=== PATIENT | male | born 1955 | race Caucasian/White ===

== ENCOUNTER → 2016-09-15 | Outpatient (CLI) | payer BC ==
[~2016-09-15] VITALS: Ht 177.8 cm; Wt 95.5 kg
[~2016-09-15] MED LIST: ARMO150T4 PO; MULT-506 PO; NITR1CAP16 PO; OXYC-57 PO; PRAM0.5T10 PO
[2016-09-15 16:10] VITALS: BP 139/81; PULSE 92; Ht 177.8 cm; Wt 95.5 kg
== END | disposition home or self-care (01) ==
LOC: C.NEUR 16:00
PROVIDERS: ATTEND Internal Medicine Pulmonary Disease
DX: G47.33 Obstructive sleep apnea (adult) (pediatric) (principal); J44.9 Chronic obstructive pulmonary disease, unspecified

== ENCOUNTER → 2016-12-19 | Outpatient (CLI) | payer BC ==
[~2016-12-19] MED LIST changes: +ASPI81TA28 PO; +TIOT1SPR INH
== END | disposition home or self-care (01) ==
LOC: C.LAB1850 07:03
PROVIDERS: ATTEND Urology
DX: R31.0 Gross hematuria (principal)

== ENCOUNTER 2017-01-15 10:10 | Day surgery (SDC) | payer BC ==
[2016-12-30 15:12] VITALS: BMI 29.0
--- NOTE | 2016-12-30 15:37 | PAT Medication Instructions ---
Service Date December 30, 2016. Current Home Medication List Armodafinil (Nuvigil), 1 TAB PO QAM Multivitamin (Multivitamin), 1 TAB PO QAM Pramipexole Dihydrochloride (Pramipexole Dihydrochlori), 1 MG PO HS Medication Instructions For Your Scheduled Surgery - Hold the following medications the morning of surgery: Multivitamin (Multivitamin), 1 TAB PO QAM Armodafinil (Nuvigil), 1 TAB PO QAM - Take the following medications as scheduled the night before surgery: Pramipexole Dihydrochloride (Pramipexole Dihydrochlori), 1 MG PO HS If you have any questions please call us at [phone] (Amber Damon PA-C) or [phone] or [phone]
--- NOTE | 2016-12-30 15:59 | DIAGNOSTIC IMAGING REPORT ---
CHEST 2 VIEWS ROUTINE CLINICAL HISTORY: Preoperative chest COMPARISON STUDY: 10/26/2015 FINDINGS: The cardiac and mediastinal contours are normal. There is no evidence of focal pulmonary consolidation. There is no evidence of failure. No pleural effusions are visualized.[ There is a stable thoracic scoliosis. There is mild biapical pleural thickening. IMPRESSION: No active disease in the chest. Electronically signed by: Dusty Wilson M.D. 12/30/2016 3:58 PM Dictated Date/Time: 12/30/2016 3:57 PM
[2016-12-30 16:08] LABS: BASO % 0.3 %; BASO ABS # 0.02 K/uL (0-0.2); COMPLETE YES; HEMATOCRIT 43.2 % (42-52); IG% 0.6 %; LYMPH ABS # 1.44 K/uL (1.2-3.4); MEAN CELL VOLUME 92.5 fL (80-100); MEAN CORPUSCULAR HEMOGLOBIN 31.5 pg (25-34); MEAN PLATELET VOLUME 9.9 fL (7.4-10.4); MONO % 5.9 %; NEUT % 69.2 %; PLATELET COUNT 209 K/uL (130-400); RED BLOOD COUNT 4.67 M/uL (4.7-6.1); WHITE BLOOD COUNT 6.26 K/uL (4.8-10.8)
[2016-12-30 16:13] LABS: URINE APPEARANCE CLEAR (CLEAR); URINE BILIRUBIN NEG (NEG); URINE COLOR YELLOW; URINE NITRITE NEG (NEG); URINE SPECIFIC GRAVITY 1.009 (1.000-1.030); UROBILINOGEN NEG (NEG)
[2016-12-30 16:16] LABS: BUN/CREATININE RATIO 10.8 (10-20); CALCIUM 9.2 mg/dl (8.5-10.1); CREATININE 1.1 mg/dl (0.60-1.40); POTASSIUM 3.5 mmol/L (3.5-5.1)
[2016-12-30 16:18] LABS: MANUAL MICROSCOPIC REQUIRED? NO; REVIEW REQ? NO
[~2017-01-15] VITALS: Ht 180.3 cm; Wt 96.8 kg
[~2017-01-15 10:10] MED LIST changes: -ASPI81TA28 PO; +CIPROFLOXACIN / D5W 400 MG IV SCH; +LACTATED RINGER'S 1000ML 1,000 ML IV SCH; -NITR1CAP16 PO; -OXYC-57 PO; -TIOT1SPR INH
[2017-01-15 10:28] VITALS: BP 139/69; PULSE 82; TEMP 36.6; O2SAT 98; Ht 180.3 cm; Wt 96.8 kg
[2017-01-15] MEDS ORDERED: FLUMAZENIL 0.1 MG/1 ML 10 ML VIAL IV PRN (10:30)
[2017-01-15] MEDS ORDERED: FENTANYL CITRATE INJ 50 MCG/1 ML 2 ML VIAL IV PRN (10:30)
[2017-01-15] MEDS ORDERED: ONDANSETRON INJ 2 MG/ML 2 ML VIAL IV PRN (10:30)
[2017-01-15] MEDS ORDERED: NALOXONE HCL 0.4 MG/1 ML VIAL/CARP IV PRN (10:30)
[2017-01-15] MEDS ORDERED: ATROPINE SULFATE 0.1 MG/ML 5ML SYR IV PRN (10:30)
[2017-01-15] MEDS ORDERED: MEPERIDINE HCL 25 MG/ML CARP IV PRN (10:30)
[2017-01-15] MEDS ORDERED: LABETALOL HCL IV 5 MG/ML 20ML IV PRN (10:30)
[2017-01-15] MEDS ORDERED: EpHEDrine SULFATE INJ 50 MG/ML AMP IV PRN (10:30)
[2017-01-15] MEDS ORDERED: PHENYLEPHRINE 100MCG/ML 5ML SYR IV PRN (10:30)
[2017-01-15] MEDS ORDERED: HYDROmorphone INJ 2 MG/ML SYR/VIAL IV PRN (10:30)
[2017-01-15] MEDS ORDERED: LIDOCAINE HCL 2% 2 ML VIAL (20MG/ML) ONE (10:49)
[2017-01-15] MEDS ORDERED: FENTANYL CITRATE INJ 50 MCG/1 ML 2 ML VIAL ONE (10:49)
[2017-01-15] MEDS ORDERED: PROPOFOL IV EMULSION 10 MG/ML 20 ML VIAL IV ONE (10:49)
[2017-01-15] MEDS ORDERED: MIDAZOLAM HCL 1 MG/ML 2ML VIAL ONE (10:49)
--- NOTE | 2017-01-15 11:06 | History & Physical Bridge Note ---
H&P Re-Evaluation Bridge Note: I have examined the patient, reviewed the History & Physical and in the interval since the performance of the History & Physical I have noted the following changes of clinical significance: No changes noted
[2017-01-15] MEDS ORDERED: PHENYLEPHRINE 100MCG/ML 5ML SYR ONE (12:00)
[2017-01-15] MEDS ORDERED: EpHEDrine SULFATE 50MG/5ML SYR ONE (12:00)
[2017-01-15] MEDS ORDERED: ONDANSETRON INJ 2 MG/ML 2 ML VIAL ONE (12:00)
[2017-01-15] MEDS ORDERED: SODIUM CHLORIDE 0.9% 1000ML 1,000 ML IV SCH (12:11)
--- NOTE | 2017-01-15 12:11 | [facility] Post Operative Brief Note ---
Immediate Operative Summary Operative Date Jan 15, 2017. 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 Opened appropriately with meatotomy. Subsequent advancement of mucosal flap to complete the meatoplasty. Easily able to accommodate a 20F dilator at the conclusion. Flexible cystoscopy - showed an old bulbar stricture that has not re-formed. Widely patent. Moderate lateral lobe hypertrophy from the prostate. No intravesical median lobe. Healthy appearing bladder without evidence of tumors , etc. Specimens None per surgeon. Drains 16F bishop Anesthesia Gen Complication(s) None Disposition Recovery Room / PACU (stable)
[2017-01-15] MEDS ORDERED: NITR1CAP16 PO (12:13)
--- NOTE | 2017-01-15 12:14 | Discharge Instructions ---
Discharge Instructions Date of Service Jan 15, 2017. Admission Reason for Admission: Meatal Stenosis; hematuria Discharge Discharge Diagnosis / Problem: Meatal stenosis Discharge Goals Goal(s): Decrease discomfort, Improve function, Increase independence, Improve disease control Activity Recommendations Activity Limitations: resume your previous activity Lifting Limitations: none Exercise/Sports Limitations: none May Resume Sexual Activity: after two weeks Shower/Bathe: no limitations Driving or Machine Use: resume 1 day after discharge . Instructions / Follow-Up Instructions / Follow-Up Please apply bacitracin or neosporin ointment to the tip of the penis twice per day for the next 2 weeks. Please keep your previously scheduled follow up appointment for catheter removal. Discharge Diet Recommended Diet: Regular Diet Procedures Procedures Performed: Meatoplasty; Flexible Cystoscopy Pending Studies Studies pending at discharge: no Medical Emergencies . Who to Call and When: Medical Emergencies: If at any time you feel your situation is an emergency, please call 911 immediately. . Non-Emergent Contact Non-Emergency issues call your: Urologist Call Non-Emergent contact if: you have a fever, temperature is above 101.5, your pain is not controlled, your pain is worsening . . "Provider Documentation" section prepared by Erlin Cunningham. . VTE Core Measure Inpt VTE Proph given/why not?: Treatment not indicated
[2017-01-15] MEDS ORDERED: HYDROCODONE/ACETAMOPHEN 5/325MG TAB PO PRN ×2 (12:15)
[2017-01-15] MEDS ORDERED: ACETAMINOPHEN 325 MG TAB PO PRN (12:15)
--- NOTE | 2017-01-15 12:46 | Anesthesiology Progress Note ---
Anesthesia Post Op Note Date & Time Jan 15, 2017 at 12:46 Vital Signs Pain Intensity: 1 Vital Signs Past 12 Hours Date Time Temp Pulse Resp B/P (MAP) Pulse Ox O2 Delivery O2 Flow Rate FiO2 01/15/17 12:42 36.2 118/62 01/15/17 12:40 77 16 96 01/15/17 12:40 77 16 01/15/17 12:37 122/64 01/15/17 12:35 75 15 96 01/15/17 12:35 76 15 01/15/17 12:32 120/66 01/15/17 12:30 77 10 99 01/15/17 12:30 78 10 01/15/17 12:27 109/70 01/15/17 12:25 77 13 01/15/17 12:25 77 13 99 01/15/17 12:22 119/80 01/15/17 12:20 82 15 98 01/15/17 12:20 Room Air 01/15/17 12:20 81 15 01/15/17 12:18 112/51 01/15/17 12:13 123/62 01/15/17 12:10 36.7 78 16 123/62 99 Mask 10 01/15/17 10:28 36.6 82 18 139/69 (92) 98 Room Air Notes Mental Status: alert / awake / arousable, participated in evaluation Pt Amnestic to Procedure: Yes Nausea / Vomiting: adequately controlled Pain: adequately controlled Airway Patency, RR, SpO2: stable & adequate BP & HR: stable & adequate Hydration State: stable & adequate Anesthetic Complications: no major complications apparent
[2017-01-15 12:50] VITALS: BP 119/74; PULSE 76; TEMP 36.8; O2SAT 97
[2017-01-15 13:20] VITALS: BP 118/65; PULSE 71; O2SAT 97
[2017-01-15 13:50] VITALS: BP 127/66; PULSE 81; TEMP 36.2; O2SAT 94
--- NOTE | 2017-01-15 16:11 | OPERATIVE REPORT ---
DATE OF OPERATION: 01/15/2017 PREOPERATIVE DIAGNOSIS: Meatal stenosis and hematuria. POSTOPERATIVE DIAGNOSIS: Meatal stenosis and hematuria. PROCEDURE PERFORMED: Meatoplasty and flexible cystoscopy. ANESTHESIA: General. ESTIMATED BLOOD LOSS: Zero. URINE OUTPUT: Not recorded. SPECIMENS: None. COMPLICATIONS: None. DRAINS: A 16-Tunisian Hadley catheter. DESCRIPTION OF THE PROCEDURE: Ap Heath was identified in the preoperative holding area. Appropriate informed consents were reviewed and completed and the patient was transported to the operating suite. Upon arrival, he received appropriate preoperative antibiotics in the form of ciprofloxacin. Adequate general anesthesia was achieved and he was placed in the supine position. I began the case by inspecting the urethral meatus. Of note, he has a tissue around the meatus that is very blanched consistent with the BXO diagnosis. I was able to pass the single limb of a straight hemostat into the urethra, but no more. I was able to clamp the straight hemostat across the ventral aspect of the meatus performing a crush procedure to devascularize the tissue on the most ventral aspect. I then used tenotomy scissors and iris scissors to open this area where I had previously crushed the tissue. There was good hemostasis. I sequentially moved further along with this opening, I was able to visualize the healthy mucosa on the deeper aspects of the internal portion of the urethra. I was able to mobilize this slightly and perform a slight advancement of this to the outer skin edge. This was accomplished using 4 simple interrupted 4-0 Vicryl stitches. At the conclusion of this as well as I was progressing through the procedure, I continued to calibrate the urethra passing instruments per urethra to ensure that we had adequate space. This was easily accommodating of a 20 Tunisian device. After feeling that there was an adequate repair of the meatus, I proceeded to pass a flexible cystoscope per urethra, I inspected the area that had previously been repaired and noted that things appeared to be quite healthy and appropriate. There were no strictures in the penile urethra, but nearing the bulb, I encountered what appeared to be several old strictures. These were widely patent and had not recurred; however scar tissue was visible on the extreme perimeter of the urethra. Inspection of the prostate revealed moderate lateral lobe hypertrophy with no intravesical lobe. I estimate a 25-30 gram prostate. Inspection of the bladder revealed healthy appearing bladder mucosa without any bladder tumors or other abnormalities. There was clear efflux bilaterally. At that time, I concluded my case, I withdrew the cystoscope leaving the bladder full. I passed a 16-Tunisian Hadley catheter and left this in place. The patient was extubated and taken to the PACU in stable condition. I attest to the content of the Intraoperative Record and any orders documented therein. Any exception s are noted below.
== END 2017-01-15 14:10 | disposition home or self-care (01) ==
LOC: C.ACU 10:10
PROVIDERS: ATTEND Urology
DX: N35.9 Urethral stricture, unspecified (principal); R31.0 Gross hematuria; J44.9 Chronic obstructive pulmonary disease, unspecified; F32.9 Major depressive disorder, single episode, unspecified; E78.5 Hyperlipidemia, unspecified; G47.33 Obstructive sleep apnea (adult) (pediatric); G47.61 Periodic limb movement disorder; G25.81 Restless legs syndrome; N48.0 Leukoplakia of penis; Z87.891 Personal history of nicotine dependence; Z79.899 Other long term (current) drug therapy

== ENCOUNTER 2017-07-16 21:20 | Emergency (ER) | payer BC ==
[~2017-07-16] VITALS: Ht 180.3 cm; Wt 89.7 kg
[~2017-07-16 21:20] MED LIST changes: -CIPROFLOXACIN / D5W 400 MG IV SCH; -LACTATED RINGER'S 1000ML 1,000 ML IV SCH
[2017-07-16 21:27] VITALS: TEMP 36.7; Ht 180.3 cm; Wt 89.7 kg
[2017-07-16 21:57] LABS: HEMATOCRIT 41.5 % (42-52); MEAN CORPUSCULAR HEMOGLOBIN 32.5 pg (25-34); MEAN CORPUSCULAR HGB CONC 34.9 g/dl (32-36); MEAN PLATELET VOLUME 9.4 fL (7.4-10.4); PLATELET COUNT 212 K/uL (130-400); RED BLOOD COUNT 4.46 M/uL (4.7-6.1); WHITE BLOOD COUNT 7.29 K/uL (4.8-10.8)
[2017-07-16] MEDS ORDERED: TIOT1SPR INH (22:14)
[2017-07-16 22:15] LABS: BUN/CREATININE RATIO 14.2 (10-20); CREATININE 0.9 mg/dl (0.60-1.40); POTASSIUM 3.8 mmol/L (3.5-5.1)
[2017-07-16] MEDS ORDERED: ASPI81TA28 PO (22:15)
[2017-07-16 22:19] LABS: ALB/GLOB RATIO 1.1 (0.9-2); CKMB/CK RATIO 1.3 (0-3.0); PARTIAL THROMBOPLASTIN RATIO 1.1; PROTHROMBIN TIME (PATIENT) 10.4 SECONDS (9.0-12.0)
--- NOTE | 2017-07-16 22:39 | DIAGNOSTIC IMAGING REPORT ---
CHEST ONE VIEW PORTABLE HISTORY: Atypical Chest pain COMPARISON: Chest 12/30/2016. FINDINGS: The lungs are clear. Cardiac silhouette is normal in size. No pleural effusions. No pneumothorax. Stable levoscoliosis of the upper thoracic spine. IMPRESSION: No acute process. Electronically signed by: William Berger M.D. 07/16/2017 10:38 PM Dictated Date/Time: 07/16/2017 10:36 PM
[2017-07-16] MEDS ORDERED: OPTIRAY 320 IV PRN (22:45)
--- NOTE | 2017-07-16 23:01 | DIAGNOSTIC IMAGING REPORT ---
THORACIC SPINE CT CT DOSE: HISTORY: Back pain. TECHNIQUE: Multiaxial CT images of the thoracic spine were performed and reformatted in the sagittal and coronal plane without the use of contrast. A dose lowering technique was utilized adhering to the principles of ALARA. COMPARISON: Chest 07/16/2017. Mild degenerative disc disease within the mid thoracic spine. FINDINGS: No fractures. No subluxation. Paraspinal soft tissues are unremarkable. Levoscoliosis of the upper thoracic spine is again noted. IMPRESSION: No fractures within the thoracic spine. Electronically signed by: William Berger M.D. 07/16/2017 11:00 PM Dictated Date/Time: 07/16/2017 10:57 PM
[2017-07-16] MEDS ORDERED: PRAMIPEXOLE DIHYDROCHLORIDE 0.25MG TAB PO STA (23:13)
--- NOTE | 2017-07-16 23:14 | DIAGNOSTIC IMAGING REPORT ---
CHEST CTA for PULMONARY ARTERIES CT DOSE: 613.44 mGy.cm HISTORY: Atypical chest pain TECHNIQUE: Multiaxial CT images of the chest were performed following the intravenous administration of contrast to evaluate the pulmonary arteries. Maximal intensity projection images were also obtained. A dose lowering technique was utilized adhering to the principles of ALARA. COMPARISON STUDY: Chest 07/16/2017. FINDINGS: Normal caliber thoracic aorta with no evidence for dissection. The heart is normal in size. No pleural or pericardial effusions. Calcified mediastinal and hilar lymph nodes. No filling defects within the pulmonary arteries to suggest embolus. No pneumothorax. The central airways are patent. Mild emphysema. Mild biapical pleural-parenchymal scarring. Mild interstitial thickening at the lung bases. This is likely chronic. No focal lung consolidations to suggest pneumonia. No fractures within the visualized osseous structures. No mediastinal or hilar lymphadenopathy. Mild thickening of the a few punctate calcified granuloma seen within the liver and spleen. A 7 mm hypodense lesion within the left hepatic lobe is too small to characterize. Punctate bilateral renal calculi. Normal adrenal glands. IMPRESSION: 1. No evidence for pulmonary embolus. 2. Mild emphysema. 3. Bilateral nephrolithiasis. 4. Mild thickening of esophagus. This is consistent with a mild nonspecific esophagitis. Electronically signed by: William Berger M.D. 07/16/2017 11:12 PM Dictated Date/Time: 07/16/2017 11:03 PM
[2017-07-16] MEDS ORDERED: ALUMINUM/MAGNESIUM SUSP 30 ML UDC PO STA (23:23)
[2017-07-16] MEDS ORDERED: LIDOCAINE HCL 2% VISC SOLN 20 ML UDC PO STA (23:23)
[2017-07-16 23:59] VITALS: BP 124/75; PULSE 80; O2SAT 94
--- NOTE | 2017-07-17 00:01 | EMERGENCY ROOM VISIT NOTE ---
History Report prepared by Tiera: Phani Calero Under the Supervision of: Dr. Shiva Ariza M.D. First contact with patient: 21:57 Chief Complaint: CARDIAC ASSESSMENT Stated Complaint: CARDIAC Nursing Triage Summary: Patient reports developing sharp pain between his shoulder blades this morning around 0730 while at work. The pain gave him mild dizziness and lasted for about 20 minutes. He reports the pain came and went throughout the day today. He went to Urgent Care and they referred him here. Patient denies any cardiac history. History of Present Illness The patient is a 62 year old male who presents to the Emergency Room with complaints of intermittent back pain that started at 0730. He rates his pain as a 2/10 in severity and describes his pain as a sharp sensation. The patient states that movement or deep breaths did not worsen the pain. He states that the pain is located directly between his shoulder blades. The patient states that his pain as been intermittent since this morning and usually lasts 20 minutes. He states the pain has caused him to experience mild dizziness. The patient admits that he also experienced reflux this morning. He reports that he went to Urgent Care today where they gave him aspirin and sent him to the ED. He admits that his symptoms are currently resolved. The patient denies any chest pain, shortness of breath, leg pain, new leg swelling, recent surgery, immobilization in bed for a long time, abdominal pain, falling and being a current smoker. Source of History: patient Onset: 0730 Position: back (between shoulder blades) Symptom Intensity: 2/10 Quality: sharp Timing: intermittent Modifying Factors (Relieving): other (Aspirin) Associated Symptoms: No chest pain, No SOB, No abdominal pain Review of Systems See HPI for pertinent positives & negatives. A total of 10 systems reviewed and were otherwise negative. Past Medical & Surgical Medical Problems: (1) Asthma (2) Bronchitis (3) COPD (chronic obstructive pulmonary disease) (4) Restless leg syndrome (5) Syncope (6) Urinary anastomotic stricture Surgical Problems: (1) History of back surgery Family History FHx: gallbladder disease Social History Smoking Status: Never Smoker Smokeless Tobacco Use: No Alcohol Use: none Drug Use: none Marital Status: Housing Status: lives with family Occupation Status: retired Current/Historical Medications Scheduled Armodafinil (Nuvigil), 1 TAB PO QAM Aspirin (Aspirin Ec), 324 MG PO DAILY Multivitamin (Multivitamin), 1 TAB PO QAM Pramipexole Dihydrochloride (Pramipexole Dihydrochlori), 1 MG PO HS Tiotropium Benedict (Spiriva Respimat), 2 PUFFS INH DAILY Allergies Coded Allergies: No Known Allergies (Unverified , 07/16/17) Physical Exam Vital Signs Date Time Temp Pulse Resp B/P (MAP) Pulse Ox O2 Delivery O2 Flow Rate FiO2 07/16/17 23:34 77 18 117/72 96 Room Air 07/16/17 22:00 78 18 134/83 95 Room Air 07/16/17 21:55 78 07/16/17 21:55 94 Room Air 07/16/17 21:55 Room Air 07/16/17 21:27 36.7 79 16 139/88 94 Room Air Physical Exam Constitutional: Vital signs reviewed. Eyes: Pupils are equal round reactive to light. Conjunctiva are noninjected. ENT: Pharynx is clear without erythema or exudate. Mucous membranes are moist. Neck supple without meningeal signs. Respiratory: Clear to auscultation bilaterally. Breath sounds are equal bilaterally. Cardiovascular: Regular rate and rhythm. No rubs or gallops. Symmetric pulses GI: Soft, nondistended and nontender. Bowel sounds are present. Musculoskeletal: No peripheral edema. No lower extremity tenderness. Integumentary: No cyanosis. Neurological: The patient is awake and alert. No focal deficits. Psychiatric: Normal affect. Medical Decision & Procedures ER Provider Diagnostic Interpretation: Radiology results as stated below per my review and the radiologist's interpretation: CHEST ONE VIEW PORTABLE HISTORY: Atypical Chest pain COMPARISON: Chest 12/30/2016. FINDINGS: The lungs are clear. Cardiac silhouette is normal in size. No pleural effusions. No pneumothorax. Stable levoscoliosis of the upper thoracic spine. IMPRESSION: No acute process. Electronically signed by: William Berger M.D. 07/16/2017 10:38 PM Dictated Date/Time: 07/16/2017 10:[address] DOSE: HISTORY: Back pain. TECHNIQUE: Multiaxial CT images of the thoracic spine were performed and reformatted in the sagittal and coronal plane without the use of contrast. A dose lowering technique was utilized adhering to the principles of ALARA. COMPARISON: Chest 07/16/2017. Mild degenerative disc disease within the mid thoracic spine. FINDINGS: No fractures. No subluxation. Paraspinal soft tissues are unremarkable. Levoscoliosis of the upper thoracic spine is again noted. IMPRESSION: No fractures within the thoracic spine. Electronically signed by: William Berger M.D. 07/16/2017 11:00 PM Dictated Date/Time: 07/16/2017 10:57 PM CHEST CTA for PULMONARY ARTERIES CT DOSE: 613.44 mGy.cm HISTORY: Atypical chest pain TECHNIQUE: Multiaxial CT images of the chest were performed following the intravenous administration of contrast to evaluate the pulmonary arteries. Maximal intensity projection images were also obtained. A dose lowering technique was utilized adhering to the principles of ALARA. COMPARISON STUDY: Chest 07/16/2017. FINDINGS: Normal caliber thoracic aorta with no evidence for dissection. The heart is normal in size. No pleural or pericardial effusions. Calcified mediastinal and hilar lymph nodes. No filling defects within the pulmonary arteries to suggest embolus. No pneumothorax. The central airways are patent. Mild emphysema. Mild biapical pleural-parenchymal scarring. Mild interstitial thickening at the lung bases. This is likely chronic. No focal lung consolidations to suggest pneumonia. No fractures within the visualized osseous structures. No mediastinal or hilar lymphadenopathy. Mild thickening of the a few punctate calcified granuloma seen within the liver and spleen. A 7 mm hypodense lesion within the left hepatic lobe is too small to characterize. Punctate bilateral renal calculi. Normal adrenal glands. IMPRESSION: 1. No evidence for pulmonary embolus. 2. Mild emphysema. 3. Bilateral nephrolithiasis. 4. Mild thickening of esophagus. This is consistent with a mild nonspecific esophagitis. Electronically signed by: William Berger M.D. 07/16/2017 11:12 PM Dictated Date/Time: 07/16/2017 11:03 PM Laboratory Results 07/16/17 21:46 07/16/17 21:46 Test 07/16/17 21:46 07/16/17 23:31 Red Blood Count 4.46 M/uL (4.7-6.1) Mean Corpuscular Volume 93.0 fL (80-100) Mean Corpuscular Hemoglobin 32.5 pg (25-34) Mean Corpuscular Hemoglobin Concent 34.9 g/dl (32-36) RDW Standard Deviation 43.5 fL (36.4-46.3) RDW Coefficient of Variation 12.8 % (11.5-14.5) Mean Platelet Volume 9.4 fL (7.4-10.4) Prothrombin Time 10.4 SECONDS (9.0-12.0) Prothromb Time International Ratio 1.0 (0.9-1.1) Activated Partial Thromboplast Time 29.2 SECONDS (21.0-31.0) Partial Thromboplastin Ratio 1.1 Anion Gap 10.0 mmol/L (3-11) Est Creatinine Clear Calc Drug Dose 89.4 ml/min Estimated GFR () 105.0 Estimated GFR (Non- 90.6 BUN/Creatinine Ratio 14.2 (10-20) Calcium Level 9.0 mg/dl (8.5-10.1) Total Bilirubin 0.2 mg/dl (0.2-1) Aspartate Amino Transf (AST/SGOT) 17 U/L (15-37) Alanine Aminotransferase (ALT/SGPT) 26 U/L (12-78) Alkaline Phosphatase 70 U/L (45-117) Total Creatine Kinase 100 U/L (39-308) Creatine Kinase MB 1.3 ng/ml (0.5-3.6) Creatine Kinase MB Ratio 1.3 (0-3.0) Total Protein 7.6 gm/dl (6.4-8.2) Albumin 3.9 gm/dl (3.4-5.0) Globulin 3.7 gm/dl (2.5-4.0) Albumin/Globulin Ratio 1.1 (0.9-2) Bedside Troponin I < 0.030 ng/ml (0-0.045) Laboratory results as reviewed by me. Medications Administered Medications (Trade) Dose Ordered Sig/Carlie Route Start Time Stop Time Status Last Admin Dose Admin Pramipexole Dihydrochloride (miraPEX TAB) 1 mg NOW STAT PO 07/16/17 23:13 07/16/17 23:15 DC 07/16/17 23:24 1 MG Lidocaine HCl (Viscous Lidocaine 2% Soln) 10 ml NOW STAT PO 07/16/17 23:23 07/16/17 23:24 DC 07/16/17 23:33 10 ML Al Hydroxide/Mg Hydroxide (Maalox Susp) 30 ml NOW STAT PO 07/16/17 23:23 07/16/17 23:24 DC 07/16/17 23:33 30 ML ECG Indication: back/shoulder pain Rate (beats per minute): 79 Rhythm: normal sinus Findings: Q waves (lead 3), no ectopy, other (No ST elevations) Comparison ECG Date: 12/30/16 Change: Q waves present. ED Course 2158: The patient was evaluated in room B05. A complete history and physical exam was performed. 2313: Ordered MiraPEX TAB 1 mg PO. 2323: Ordered Maalox Susp 30 ml PO, Lidocaine HCl 10 ml PO. 2325: I reevaluated the patient who reports that he had a few episodes of pain, but he admits that the pain is gone. I discussed the test results with the patient. We are going to repeat a troponin and give him a GI cocktail. 2354: I reassessed the patient. He states his back pain is much better at GI cocktail. His second troponin was negative. I did recommend he follow closely with his doctor and discuss limitations of the workup done here in the emergency department. Medical Decision This is a 62-year-old male who presents with thoracic back pain. Differential diagnosis includes acute coronary syndrome, aortic dissection, thoracic vertebral fracture, pulmonary embolism, strain, reflux. I did perform a limited focused review of portions of the patient's old chart on the electronic medical record. The patient has had no recent pertinent visits to this hospital. I did evaluate the patient as noted above. Patient is presenting with intermittent thoracic back pain which started this morning. He has no worsening or alleviating factors. He denies having any chest discomfort or pain. He has no shortness of breath. He did visit an urgent care center and was sent here for evaluation. IV access was established. The patient was placed on a continuous satellite project site monitor. I did order and personally review the patient's 12-lead EKG and chest x-ray as described above. His 12-lead EKG demonstrated some Q waves inferiorly but they were present on his previous EKG. I did order and review the patient's blood work as noted in the electronic medical record. Troponin is negative. I did order a CT of chest and thoracic spine. I did review the images myself as well as the radiology report as described above. There was no evidence of aortic dissection, pulmonary embolism or fracture. He did have signs of esophagitis. I did discuss the test results with the patient. I did treat him with a GI cocktail. A repeat troponin was obtained and was negative. On reassessment the patient states that the GI cocktail helped the symptoms. I did discuss the limitations of the workup done here regarding his symptoms and recommended close follow up with his doctor. He does note that he had a negative stress test about 2 years ago. He also reaffirms that at no time did he have any chest discomfort today. He was advised to take Prilosec and Maalox for his symptoms given the findings of esophagitis on CT scanning. He was discharged in good condition and given return instructions as outlined below. Medication Reconcilliation Current Medication List: was personally reviewed by me Blood Pressure Screening Patient's blood pressure: Elevated blood pressure Blood pressure disposition: Referred to PCP Impression Primary Impression: Thoracic back pain Scribe Attestation The scribe's documentation has been prepared under my direct and personally reviewed by me in its entirety. I confirm that the note above accurately reflects all work, treatment, procedures, and medical decision making performed by me. Departure Information Dispostion Home / Self-Care Referrals Rufina Mueller MD (PCP) Forms IMPORTANT VISIT INFORMATION Patient Instructions My [facility] Additional Instructions You have been examined and treated today on an emergency basis only. This is not a substitute for, or an effort to provide, complete comprehensive medical care. It is impossible to recognize and treat all injuries or illnesses in a single emergency department visit. It is therefore important that you follow up closely with your physician. Call as soon as possible for an appointment. Return for worsening symptoms or if you develop chest pain, shortness of breath , profuse sweating, lightheadedness, black or tarry stools, abdominal pain or any other concerning symptoms. Problem Qualifiers Primary Impression: Thoracic back pain Chronicity: acute Back pain laterality: midline Qualified Codes: M54.6 - Pain in thoracic spine
== END 2017-07-16 23:59 | disposition home or self-care (01) ==
LOC: C.EDB 21:21
DX: M54.6 Pain in thoracic spine (principal); J45.909 Unspecified asthma, uncomplicated; J44.9 Chronic obstructive pulmonary disease, unspecified; R56.9 Unspecified convulsions; Z79.82 Long term (current) use of aspirin; J43.9 Emphysema, unspecified

== ENCOUNTER 2017-10-28 20:00 | Emergency (ER) | payer BC ==
[~2017-10-28] VITALS: Ht 180.3 cm; Wt 90.6 kg
[~2017-10-28 20:00] MED LIST changes: +ASPI81TA28 PO; -PRAM0.5T10 PO; +PRAM0.5T13 PO; +TIOT1SPR INH
[2017-10-28 20:06] VITALS: TEMP 36.7; Ht 180.3 cm; Wt 90.6 kg
--- NOTE | 2017-10-28 20:30 | EMERGENCY ROOM VISIT NOTE ---
ED Visit Note First contact with patient: 20:10 CHIEF COMPLAINT: Left ankle swelling and pain HISTORY OF PRESENT ILLNESS: This 62-year-old male patient presents to the emergency department, ambulatory, complaining of swelling, discoloration, and pain in the medial left ankle. The patient does not recall any known injury. The patient was seen at his primary care provider earlier today for an appointment, and the concern was for a possible blood clot. The patient does not have a history of clots, nor does he have risk factors. The patient is not a smoker, does not use any hormone replacement, and is not sedentary. 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 The patient denies pain, swelling, or discoloration of the foot. The patient rates the pain as minimal and 0/10. The patient is able to bear weight on the foot. He did recently travel to [place], but this was after he noticed the swelling of the left ankle. The patient did wear compression stockings, as he was previously a frequent traveler, however he always makes frequent stops and stretches his extremities. No knee pain, the patient is able to move their toes. No numbness or weakness of the foot, no laceration. The patient has not had a previous fracture to this ankle. He denies history of blood clots. The patient has taken nothing for the pain. The patient denies any other injury. REVIEW OF SYSTEMS: A 6 system review of systems was completed with positives and pertinent negatives listed in the HPI. ALLERGIES: None MEDICATIONS: Pramipexole, Nuvigil, Spiriva PMH: Restless leg syndrome, obstructive sleep apnea, COPD SOCIAL HISTORY: The patient lives locally with family. He denies drug, alcohol , tobacco use. PHYSICAL EXAM: Vital Signs: Reviewed Nurse's notes, vital signs stable. GENERAL : This is a 62-year-old white male, no acute distress, but appears in pain, well -developed, well-nourished. MENTAL STATUS: Alert, oriented to person place and time, and cooperative. MUSCULOSKELETAL: The left ankle is swollen and tender over the medial malleolus, but the skin is intact and there is no ligamentous instability. There is some mild purple/red discoloration in the area of the swelling and pain. There is no medial malleolus or fifth metatarsal tenderness. There is no tenderness over the rest of the foot. There is no calf or tibia/fibular tenderness. There is no visual deformity. The foot and toes are warm and well-perfused. Dorsalis pedis pulse 2+. Sensation to pain and light touch is intact. Capillary refill less than 2 seconds. RADIOLOGY: ULTRASOUND LEFT LOWER EXTREMITY VENOUS CLINICAL HISTORY: Left ankle pain and swelling. COMPARISON STUDY: No priors. TECHNIQUE: Real-time, grayscale, and color Doppler sonography of the deep veins of the left lower extremity was performed from the inguinal crease to the calf. Compression and augmentation were utilized. FINDINGS: There is no sonographic evidence of deep venous thrombosis identified in the left lower extremity. The common femoral, superficial femoral, and popliteal veins are patent and normally compressible. The greater saphenous vein and the profunda femoris vein at the junction with the common femoral vein are clear. The visualized calf veins are patent. A minimally complex popliteal cyst measures 4.2 x 1.6 x 2.6 cm. There is a small complex fluid collection identified at the ankle joint. This measures 3.8 x 1.1 x 1.7 cm. IMPRESSION: 1. There is no sonographic evidence of deep venous thrombosis identified in the left lower extremity. 2. Popliteal cyst. 3. A small complex collection is identified in the left ankle soft tissues. The appearance suggests hematoma. Clinical correlation will be required and clinical follow-up to resolution is recommended. Electronically signed by: Santiago Rosen M.D. 10/28/2017 9:30 PM Dictated Date/Time: 10/28/2017 9:29 PM LEFT ANKLE 3 VIEWS CLINICAL HISTORY: Ankle pain and swelling. Contusion. FINDINGS: 3 views of the left ankle are obtained. No prior studies are available for comparison at the time of dictation. The skeletal structures are well mineralized. No fracture is seen. The ankle mortise is intact. A small plantar calcaneal enthesophyte is observed. Degenerative spurring is seen along the dorsal aspect of the tarsal bones. There is a small joint effusion. Soft tissue edema is present around the ankle. IMPRESSION: Soft tissue swelling and joint effusion. No left ankle fracture is seen. Electronically signed by: Santiago Rosen M.D. 10/28/2017 8:51 PM Dictated Date/Time: 10/28/2017 8:50 PM EMERGENCY DEPARTMENT COURSE: I examined the patient. He presents for DVT rule- out due to left ankle swelling/pain. He does provide pictures which are consistent with contusion/hematoma approximately 2 weeks ago. The patient has no DVT risk factors. X-rays and ultrasound were performed as above. These studies were reviewed by myself and read by radiology as above which were negative for DVT, but showed evidence for soft tissue swelling and hematoma. I discussed the findings with the patient at bedside. I offered an ten wrap for comfort and the patient declines. He was encouraged to follow-up with his PCP outpatient for ongoing management and re-evaluation. Discharge instructions reviewed. The patient was discharged home in good condition. I attest that I have personally reviewed the patient's current medication list. Patient was found to have normal blood pressure on screening and does not require follow-up. Etiologies such as DVT, joint effusion, infection, trauma, muscular, lymphedema , idiopathic, CHF, as well as others were entertained. DIAGNOSIS: hematoma left lower extremity The chart was completed utilizing [employer] Speech voice recognition software. Grammatical errors, random word insertions, pronoun errors, and incomplete sentences are an occasional consequence of this system due to software limitations, ambient noise, and hardware issues. Any formal questions or concerns about the content, text, or information contained within the body of this dictation should be directly addressed to the provider for clarification. Problem List Surgical Problems: (1) History of back surgery Status: Resolved Current/Historical Medications Scheduled Armodafinil (Nuvigil), 1 TAB PO QAM Aspirin (Aspirin Ec), 324 MG PO DAILY Multivitamin (Multivitamin), 1 TAB PO QAM Pramipexole Dihydrochloride (Pramipexole Dihydrochlori), 1 MG PO HS Tiotropium [place] (Spiriva Respimat), 2 PUFFS INH DAILY Allergies Coded Allergies: No Known Allergies (Unverified , 07/16/17) Vital Signs Date Time Temp Pulse Resp B/P (MAP) Pulse Ox O2 Delivery O2 Flow Rate FiO2 10/28/17 21:37 88 16 142/82 95 Room Air 10/28/17 20:06 36.7 97 20 142/80 97 Room Air Departure Information Impression Primary Impression: Hematoma of left lower extremity Dispostion Home / Self-Care Condition GOOD Referrals Rufina Mueller MD (PCP) Patient Instructions ED Hematoma, My [facility] Additional Instructions You were seen in the ED today for left lower extremity swelling and bruising. U/ S was negative for DVT. Xray was negative for fracture. U/S did show evidence for hematoma. Ibuprofen(Motrin, Advil) may be used for fever or pain. Use 600mg every six hours as needed. Take with food. Avoid using more than 2400mg in a 24 hour period. Do not use 2400mg per day for more than three consecutive days without physician direction. Prolonged inappropriate use can lead to stomach upset or ulcers. (AND/OR) Acetaminophen(Tylenol) may be used for fever or pain. Use 1000mg every six hours as needed. Avoid using more than 3000mg in a 24 hour period. Use a heating pad on the leg to help with pain and swelling. Wear compression stockings to help with pain and swelling. Follow-up with your PCP for further evaluation and work-up in 1 week if no improvement. Return to the ED for worsening pain, discoloration, swelling, sensation changes , or other concerning symptoms. Problem Qualifiers Primary Impression: Hematoma of left lower extremity Encounter type: initial encounter Qualified Codes: S80.12XA - Contusion of left lower leg, initial encounter
--- NOTE | 2017-10-28 20:52 | DIAGNOSTIC IMAGING REPORT ---
LEFT ANKLE 3 VIEWS CLINICAL HISTORY: Ankle pain and swelling. Contusion. FINDINGS: 3 views of the left ankle are obtained. No prior studies are available for comparison at the time of dictation. The skeletal structures are well mineralized. No fracture is seen. The ankle mortise is intact. A small plantar calcaneal enthesophyte is observed. Degenerative spurring is seen along the dorsal aspect of the tarsal bones. There is a small joint effusion. Soft tissue edema is present around the ankle. IMPRESSION: Soft tissue swelling and joint effusion. No left ankle fracture is seen. Electronically signed by: Santiago Rosen M.D. 10/28/2017 8:51 PM Dictated Date/Time: 10/28/2017 8:50 PM
--- NOTE | 2017-10-28 21:32 | DIAGNOSTIC IMAGING REPORT ---
ULTRASOUND LEFT LOWER EXTREMITY VENOUS CLINICAL HISTORY: Left ankle pain and swelling. COMPARISON STUDY: No priors. TECHNIQUE: Real-time, grayscale, and color Doppler sonography of the deep veins of the left lower extremity was performed from the inguinal crease to the calf. Compression and augmentation were utilized. FINDINGS: There is no sonographic evidence of deep venous thrombosis identified in the left lower extremity. The common femoral, superficial femoral, and popliteal veins are patent and normally compressible. The greater saphenous vein and the profunda femoris vein at the junction with the common femoral vein are clear. The visualized calf veins are patent. A minimally complex popliteal cyst measures 4.2 x 1.6 x 2.6 cm. There is a small complex fluid collection identified at the ankle joint. This measures 3.8 x 1.1 x 1.7 cm. IMPRESSION: 1. There is no sonographic evidence of deep venous thrombosis identified in the left lower extremity. 2. Popliteal cyst. 3. A small complex collection is identified in the left ankle soft tissues. The appearance suggests hematoma. Clinical correlation will be required and clinical follow-up to resolution is recommended. Electronically signed by: Santiago Rosen M.D. 10/28/2017 9:30 PM Dictated Date/Time: 10/28/2017 9:29 PM
[2017-10-28 21:37] VITALS: BP 142/82; PULSE 88; O2SAT 95
== END 2017-10-28 21:55 | disposition home or self-care (01) ==
LOC: C.EDB 20:03 → C.EDD 21:55
DX: S80.12XA Contusion of left lower leg, initial encounter (principal); M25.572 Pain in left ankle and joints of left foot; X58.XXXA Exposure to other specified factors, initial encounter; Z79.899 Other long term (current) drug therapy; Z79.82 Long term (current) use of aspirin